=== PATIENT | female | born 1970 | race Two or more races ===

== ENCOUNTER 2017-02-15 12:27 | Emergency (ER) | payer OTHER ==
[~2017-02-15] VITALS: Ht 160 cm; Wt 57.2 kg
[2017-02-15 12:38] VITALS: BP 96/59
[2017-02-15] MEDS ORDERED: traMADol 50mg tab ORAL ONE (13:15)
--- NOTE | 2017-02-15 13:43 | Diagnostic Imaging Report ---
Indication: Pain 3 views of the left knee were obtained. Findings: No acute fracture, malalignment, or joint effusion are identified. Joint space is relatively well-maintained. Impression: Negative for acute injury
[2017-02-15 13:55] LABS: APPEARANCE,URINE CLEAR; BILIRUBIN, URINE NEGATIVE (NEGATIVE); COLOR,URINE PALE YELLOW; GLUCOSE, URINE (UA) NEGATIVE (NEGATIVE); KETONES,URINE NEGATIVE (NEGATIVE); LEUKOCYTE ESTERASE ,URINE NEGATIVE (NEGATIVE); NITRITE,URINE NEGATIVE (NEGATIVE); PH,URINE 6.5 (4.5-8.0); PROTEIN,URINE NEGATIVE (NEGATIVE); UROBILINOGEN,URINE NORMAL MG/DL (0.0-1.0)
[2017-02-15] MEDS ORDERED: IBUPROFEN600 MG ORAL (14:04)
[2017-02-15] MEDS ORDERED: GABAPENTIN300 MG ORAL (14:04)
[2017-02-15 14:20] VITALS: BP 100/64
--- NOTE | 2017-02-15 19:33 | Emergency Room Report ---
History of Present Illness General Chief Complaint: General Complaint Source: Patient Present Illness HPI The patient is a 46-year-old female presenting for left knee pain. She states that pain began approximately one year prior and has been cycling on and off with pain. Pain is now 7/10 dull ache and does not radiate. Worse with movement. She is also complaining of intermittent electric-type pain radiating down the back of both legs. No known provoking or relieving factors. She has not tried any pain medications at home. She denies other symptoms including nausea, vomiting, fever, chills, dizziness, blurred vision, headache, urinary incontinence, numbness or tingling Allergies: Coded Allergies: Wheat (Verified Allergy, Unknown, 02/15/17) Patient History Past Medical History: see triage record Pertinent Family History: none Last Menstrual Period: 10/22/16 Now: No Reviewed Nursing Documentation: PMH: Agreed, PSxH: Agreed Nursing Documentation-PMH Past Medical History: No Stated History Review of Systems All Other Systems: negative except mentioned in HPI Physical Exam Vital Signs Date Time Temp Pulse Resp B/P (MAP) Pulse Ox O2 Delivery O2 Flow Rate FiO2 02/15/17 12:33 97.7 79 16 96/59 97 Room Air Sp02 EP Interpretation: reviewed, normal General Appearance: no apparent distress, alert, GCS 15, non-toxic Head: normocephalic, atraumatic Eyes: bilateral eye normal inspection, bilateral eye PERRL ENT: hearing grossly normal, normal pharynx, no angioedema, normal voice Neck: full range of motion, supple/symm/no masses Musculoskeletal: back normal, gait/station normal, normal range of motion, no calf tenderness, tender - L knee diffuse Neurologic: alert, oriented x3, responsive, motor strength/tone normal, sensory intact, speech normal Psychiatric: judgement/insight normal, memory normal, mood/affect normal, no suicidal/homicidal ideation Skin: normal color, no rash, warm/dry, well hydrated Medical Decision Making PA Attestation Dr. Pimentel is my supervising physician. Patient management was discussed with my supervising physician Diagnostic Impression: Primary Impression: Leg pain Qualified Codes: M79.605 - Pain in left leg ER Course The patient is a 46-year-old female presenting for left knee pain Ddx considered include but not limited to sprain/strain, fracture, contusion, sciatica, among others PE: NAD There is diffuse tenderness to palpation over the left knee. No obvious deformity. Full active range of motion. No skin changes Patient walks with normal gait X-ray of the knee is unremarkable The patient is discharged home with a prescription for gabapentin and Motrin and will followup with primary doctor. She was informed she may need additional testing if pain continues or worsens ER precautions given Other X-Ray Diagnostic Results Other X-Ray Diagnostic Results : X-Ray ordered: L knee # of Views/Limited Vs Complete: 3 View Indication: Pain EP Interpretation: Yes ESTHER Xray: Interpretation reviewed, by supervising MD, and agrees with findings. Interpretation: no dislocation, no soft tissue swelling, no fractures Impression: No acute disease Electronically Signed by: Wilfrido Louis PA-C Last Vital Signs Date Time Temp Pulse Resp B/P (MAP) Pulse Ox O2 Delivery O2 Flow Rate FiO2 02/15/17 14:20 97.7 78 16 100/64 97 Room Air Status: improved Disposition: HOME, SELF-CARE Condition: Improved Scripts Ibuprofen* (MOTRIN*) 600 Mg Tablet 600 MG ORAL Q8H Y for For Pain, #30 TAB 0 Refills Prov: WILFRIDO LOUIS.AKlever 02/15/17 Gabapentin* (GABAPENTIN*) 300 Mg Capsule 300 MG ORAL THREE TIMES A DAY, #30 CAP 0 Refills Prov: WILFRIDO LOUIS.A. 02/15/17 Patient Instructions: Sciatica Additional Instructions: I discussed my findings with the patient. All questions and concerns have been answered. Treatment and medication compliance have been addressed. I advised the patient that they need to follow up with primary doctor as soon as possible. Return to ED if symptoms worsen, new symptoms arise, or if needed for any reason. Patient verbalized understanding of discharge instructions. The patient was informed to followup with primary doctor as soon as possible. If symptoms worsen or do not improve, MRI should be considered WILFRIDO LOUIS Feb 15, 2017 19:33
== END 2017-02-15 14:32 | disposition home or self-care (01) ==
LOC: EMR 12:53
DX: M79.605 Pain in left leg (principal)
CPT/HCPCS: 81003; 99284